=== PATIENT | female | born 1965 | race Caucasian/White ===

== ENCOUNTER 2017-11-25 15:34 | Emergency (ER) | payer OTHER ==
[2017-11-25] MEDS: LORAZEPAM 0.5 MG TAB PO (18:54)
[2017-11-25 19:02] LABS: ADD MAN DIFF? NO
[2017-11-25 19:09] LABS: BASOPHILS % 0.4 % (0.0-2.0); EOSINOPHILS # 0.3 10^3/ul (0.0-0.5); EOSINOPHILS % 3.2 % (0.0-7.0); HEMOGLOBIN 14.7 g/dl (12.0-16.0); LYMPHOCYTES # 2.7 10^3/ul (0.8-2.9); LYMPHOCYTES % 27.3 % (15.0-51.0); MEAN CORPUSCULAR HEMOGLOBIN 27.9 pg (29.0-33.0); MEAN CORPUSCULAR HGB CONC 33.4 g/dl (32.0-37.0); MEAN CORPUSCULAR VOLUME 83.7 fl (82.0-101.0); MEAN PLATELET VOLUME 9.8 fl (7.4-10.4); MONOCYTE # 0.4 10^3/ul (0.3-0.9); MONOCYTES % 4.3 % (0.0-11.0); NEUTROPHIL # 6.3 10^3/ul (1.6-7.5); NEUTROPHILS % 64.6 % (39.0-77.0); PLATELET COUNT 286 10^3/UL (140-415); RED BLOOD COUNT 5.26 10^6/ul (4.20-5.40); RED CELL DISTRIBUTION WIDTH 13.2 % (11.5-14.5)
[2017-11-25 19:09] LABS: WHITE BLOOD COUNT 9.8 10^3/ul (4.8-10.8)
[2017-11-25 19:27] LABS: ANION GAP 14 (8-16); BLOOD UREA NITROGEN 14 mg/dl (7-20); CALCIUM 9.9 mg/dl (8.4-10.2); CARBON DIOXIDE 26 mmol/L (21-31); CHLORIDE 106 mmol/L (97-110); CREATININE 0.79 mg/dl (0.44-1.00); GLUCOSE 108 mg/dl (70-220); POTASSIUM 4.6 mmol/L (3.5-5.1); SODIUM 141 mmol/L (135-144)
[2017-11-25 19:43] LABS: FREE T4 (FREE THYROXINE) 0.82 ng/dl (0.64-1.79)
[2017-11-25] MEDS: KETOROLAC 30 MG INJ IM (20:26)
== END 2017-11-25 20:50 | disposition home or self-care (01) ==
LOC: FTE 15:34
DX: R51 Headache (principal); R00.2 Palpitations; J45.909 Unspecified asthma, uncomplicated; F17.210 Nicotine dependence, cigarettes, uncomplicated
CPT/HCPCS: 70450; 80048; 83735; 84436; 84439; 84443; 85025; 93005; 96372; 99285-25

== ENCOUNTER 2018-02-18 10:30 | Emergency (ER) | payer OTHER ==
[2018-02-18] MEDS: ONDANSETRON (ODT) 4 MG TAB ODT (11:18)
[2018-02-18] MEDS: ACETAMINOPHEN 325 MG TAB PO (11:18)
[2018-02-18] MEDS: KETOROLAC 30 MG INJ IM (13:33)
== END 2018-02-18 13:52 | disposition home or self-care (01) ==
LOC: FTE 10:30
DX: R51 Headache (principal); F17.210 Nicotine dependence, cigarettes, uncomplicated; J45.909 Unspecified asthma, uncomplicated
CPT/HCPCS: 70450; 96372; 99285-25